=== PATIENT | male | born 1955 | race Caucasian/White ===

== ENCOUNTER 2017-03-11 05:23 | Inpatient (IN) ==
[2017-03-11 05:49] VITALS: BMI 28.0
[2017-03-11] MEDS ORDERED: METOCLOPRAMIDE 10mg/2ml INJECTION IVP ONE (06:00)
[2017-03-11] MEDS ORDERED: CLINDAMYCIN PB 900 MG/50 ML BAG IV ONE (06:00)
[2017-03-11] MEDS ORDERED: MELOXICAM 15 MG TABLET PO ONE (06:00)
[2017-03-11] MEDS ORDERED: FAMOTIDINE PB 20 MG/50 ML BAG IV ONE (06:00)
[2017-03-11] MEDS ORDERED: LIDOCAINE 1% (10mg/ml) 2mL INJ PF SDV ID ONE (06:00)
[2017-03-11] MEDS ORDERED: NOZIN NASAL SWAB NAS ONE ×2 (06:00→11:02)
[2017-03-11] MEDS ORDERED: ONDANSETRON 4 MG/2 ML INJECTION IVP ONE (06:00)
[2017-03-11] MEDS ORDERED: ACETAMINOPHEN 500 MG TABLET PO ONE (06:00)
[2017-03-11] MEDS ORDERED: TRANEXAMIC ACID 1,000 MG in NS 100 ML IV ONE ×2 (06:00→07:00)
[2017-03-11] MEDS: LR 1,000 ML IV SCH ×3 (06:17→09:48)
[2017-03-11] MEDS ORDERED: VANCOMYCIN 1,000 MG INJECTION ONE (06:41)
[2017-03-11] MEDS ORDERED: PROPOFOL 500 MG/50 ML VIAL IV ONE ×2 (07:02→08:34)
--- NOTE | 2017-03-11 07:13 | Anesthesia Preoperative Report ---
Anesthesia Preoperative Record - Date and Time Date: 03/11/17 Preoperative Diagnosis: Lt TKA M17.12 Proposed Procedure: left TKA NPO Since Date: 03/10/17 NPO Since Time: 22:00 Allergies/Adverse Reactions: Allergies Allergy/AdvReac Type Severity Reaction Status Date / Time amoxicillin [From Augmentin] AdvReac Severe Diarrhea Verified 03/11/17 05:56 clavulanic acid AdvReac Severe Diarrhea Verified 03/11/17 05:56 [From Augmentin] - Vital Signs Vital Signs: Temperature 97.7 F 03/11/17 05:47 Pulse Rate 71 03/11/17 06:16 Respiratory Rate 16 03/11/17 05:47 Blood Pressure 149/72 H 03/11/17 05:47 Pulse Oximetry 97 03/11/17 05:47 Height and Weight: Height 1.8 m Weight 91.3 kg Body Mass Index 28.0 - Medications Inpatient Medications: Current Medications Epinephrine HCl 0.25 mg/Bupivacaine HCl 30 ml/Morphine Sulfate 15 mg/Ketorolac Tromethamine 60 mg/Sodium Chloride 65.25 mls @ 0 mls/hr OPSITE INTRAOP ONE; Per Protocol PRN Reason: Protocol Stop: 03/11/17 08:01 Lactated Ringer's (Lactated Ringers) 1,000 mls @ 50 mls/hr IV .Q20H NIC Last Admin: 03/11/17 06:17 Dose: 50 mls/hr Sodium Chloride (Iv Flush) 10 - 80 ml IV PRN PRN PRN Reason: Flushing Home Medications: Home Medications Medication Instructions Recorded Confirmed Type Glucosa Callahan 2Kcl/Chondroitin Callahan 1 each PO DAILY 02/08/17 03/11/17 History [Glucosamine Chondroitin Caplet] Ibuprofen [Advil] 800 mg PO DAILY PRN 02/08/17 03/11/17 History Pravachol (pravastatin) 40 mg 40 mg PO HS tab 02/08/17 03/11/17 History tablet ascorbic acid (vitamin C) 1,000 mg 1 g PO DAILY tab 02/08/17 03/11/17 History tablet multivitamin capsule 1 cap PO QAM 02/08/17 03/11/17 History Cholecalciferol (Vitamin D3) 1 cap PO DAILY 02/09/17 03/11/17 History [Vitamin D3] Is Patient on Beta Marge?: No - Medical History Respiratory: DENIES: Sleep Apnea Cardiovascular: Reports: High Cholesterol Neuro/Musculoskeletal: Reports: Back Problems (per h&p/patient denies history) Renal/Endocrine: Reports: Other (hyperglycemia per h&p) Other History: Comment Only: Anesthesia Reactions (sometimes nauseated on ride home after hernia surgery) - Surgical History HEENT Surgeries: Reports: Eye Surgery ([place] cataract ext with IOL implants), Oral Surgery (wisdom teeth) GI Surgery/Treatments: Reports: Hernia Repair (x5), Colonoscopy Musculoskeletal Surgery/Tx: Reports: Knee Arthroscopy ( left knee) Anesthesia Reactions: None Hx Family Anesthesia Reaction: No History of Motion Sickness: No - Social History Smoking Status: Never smoker Hx Chewing Tobacco Use: No Second Hand Exposure: No Substance Use Type: does not use Alcohol Intake Frequency: does not drink - Pertinent Findings EKG: Sinus Rhythm - Physical Exam Respiratory Exam: Present: lungs clear, bilateral breath sounds equal Cardiovascular Exam: Present: regular rate and rhythm, no murmur - Airway Assessment Mallampati Score: III TMD: 3 Fingerbreadths Neck Extension: good Teeth: chipped teeth/crowns Overall Assessment: may be difficult intubation - ASA ASA Score: 2 - Plan Regional/Trunk Block: Spinal Peripheral Nerve Block: Saphenous-Left - Discussion Discussion: Discussed risks/options/alternatives of anesthesia and questions answered. Patient consents. Nursing pain assessment noted. Present for Discussion: family member Attestation Statement: Prior to the delivery of any anesthetic medication, I examined the patient, developed the plan, obtained the patient's consent and discussed the risk and benefits of the procedure with the patient/guardian. - Additional Information Seen by Anesthesia: Yes
[2017-03-11] MEDS ORDERED: SEVOFLURANE 250ml LIQUID IH ONE (07:37)
[2017-03-11] MEDS ORDERED: MIDAZOLAM 2mg/2ml INJECTION ONE (07:39)
[2017-03-11] MEDS ORDERED: EPINEPHrine PF 0.25 MG, BUPIVACAINE 0.25% PF 30 ML, MORPHINE SULFATE 15 MG, KETOROLAC I... OPSITE ONE (08:00)
[2017-03-11] MEDS ORDERED: SALINE FLUSH 10ml SYRINGE ONE (08:15)
[2017-03-11] MEDS ORDERED: PHENYLEPHRINE INJ 10 MG/ML VIAL IV ONE (08:15)
[2017-03-11] MEDS ORDERED: VANCOMYCIN 1,000 MG INJECTION IAR ONE (08:28)
--- NOTE | 2017-03-11 09:08 | Operative Note ---
- Procedure Preoperative Diagnosis: Left knee primary degenerative joint disease Postoperative Diagnosis: Same as preoperative diagnosis. Surgeon: Alvarez Rodriguez MD Academic Affairs Specialist: Arnol Mercado Complications: None. Anesthesia: Spinal. Estimated Blood Loss: See Anesthesia Record. Fluids: Please see Anesthesia Record. Desciption of Procedure: Mr. Castillo and his left knee were identified and marked in the preoperative holding area. He was brought back to the operating suite after a saphenous nerve block was placed in the preoperative holding area. Spinal anesthetic was administered and he was placed supine on the operating table. The left lower extremity was prepped and draped in my normal sterile fashion. Timeout was performed. The Fullbridge robot was used during the surgery. He had a varus deformity which was correctable and slight flexion contracture. A standard anterior midline incision followed by medial parapatellar arthrotomy was performed. Anterior fat pad and meniscus were removed. The patella was resurfaced to a size 35. A complete loss of cartilage and medial femoral condyle. Tibial and femoral arrays were placed both within the original incision. Checkpoints were then placed both in the femur and the tibia. The bone was then registered with the Fullbridge robot. Osteophytes were removed and gaps were captured both 90 and 0 with correction. The Marvin suffers used to manipulate components to obtain 19 mm gaps throughout. The Fullbridge robotic arm was then used to assist with the bone cuts. Posterior osteophytes and remaining meniscus were removed. Trial components were placed. We used a 6 femur and a 5 tibia with a 9 mm spacer. He tracked well and was well balanced throughout range of motion. The tibia was stamped the proper rotation. All trial components fit very well so we proceeded with press-fit components. Components were fit into place including a 9 mm spacer. The knee was ranged one more time to ensure good stability, balance and patellar tracking. 1 g of vancomycin powder was then placed into the knee joint. The capsulotomy was then closed with #1 Vicryl. I then left my itinerant teacher assistant to close the subcutaneous tissue with 2-0 Vicryl. Running 4-0 Monocryl will be used in the subcuticular layer. Dermabond will be used on the skin followed by sterile dressing. After drapes are removed patient will be taken to recovery room under the care of anesthesia.
[2017-03-11] MEDS ORDERED: ROPIVACAINE 0.5% (5mg/ml) 30ml INJ ONE (09:21)
--- NOTE | 2017-03-11 09:44 | Anesthesia Procedure Note ---
Peripheral Nerve Blockade - Procedure Physician: Nguyễn Rodriguez MD Date: 03/11/17 Surgical Procedure: left TKA Discussion: Discussed risks/options/alternatives of anesthesia and questions answered. Patient consents. Nursing pain assessment noted. Block Start: 09:39 Block Stop: 09:40 Blocked Employed: Adductor Canal Indication: Post-Operative Pain Approach: Left Side Confirmed Position: Supine Patient: Consent, Risks/Benefits Discussed, Informed, Post Block Act. Discussed IV Sedation: No Initial Vital Signs: Temperature 97.7 F 03/11/17 05:47 Temperature Source Oral 03/11/17 05:47 Pulse Rate 65 03/11/17 05:47 Respiratory Rate 16 03/11/17 05:47 Blood Pressure 149/72 H 03/11/17 05:47 Blood Pressure Mean 97 03/11/17 05:47 Blood Pressure Position Sitting 03/11/17 05:47 Pulse Oximetry 97 03/11/17 05:47 Oxygen Delivery Method 03/11/17 05:47 Post Vital Signs: Temperature 97.7 F 03/11/17 05:47 Pulse Rate 71 03/11/17 06:16 Respiratory Rate 16 03/11/17 05:47 Blood Pressure 149/72 H 03/11/17 05:47 Pulse Oximetry 97 03/11/17 05:47 Initial Pain Pain Score: 0 Post Block Pain Score: 0 Prep: Chlorhexadine/ETOH Ultrasound Used?: Yes - Injectate Ropivacaine (%): 0.5 Ropivacaine (mL): 20 Was Epi 1:200,000 Used?: No Injection: Injection made incrementally with constant monitoring and aspiration every ml
--- NOTE | 2017-03-11 09:55 | Anesthesia Postoperative Note ---
- Date and Time Date: 03/11/17 Time: 09:54 - Status Patient Participated in Evaluation: Patient Participated in Person Vital Signs: Temperature 97.2 F 03/11/17 09:31 Pulse Rate 67 03/11/17 09:31 Respiratory Rate 18 03/11/17 09:31 Blood Pressure 90/55 03/11/17 09:31 Pulse Oximetry 98 03/11/17 09:31 Respiratory Function: Airway Patent Cardiovascular Function: Regular Pulse EKG: Sinus Rhythm Mental Status: Alert and Oriented Pain Intensity: 0 Hydration: Taking PO Fluids Complications During Recover: None Apparent - Follow-Up Instructions Instructions: Per Surgeon
--- NOTE | 2017-03-11 10:07 | XRay Report ---
Indication: postoperative image PROCEDURE: XR knee LT 2V: Encounter: Initial Comparison: February 08, 2017 Findings: Postoperative changes of left total knee replacement are seen. There is expected postoperative subcutaneous gas. No evidence of hardware failure or acute fracture. No retained radiopaque surgical instruments or sponges. Overlying material causing artifact. Impression: New left total knee prosthesis without evidence of immediate complication. .
[2017-03-11] MEDS ORDERED: ONDANSETRON 4 MG/2 ML INJECTION IVP PRN (11:02)
[2017-03-11] MEDS ORDERED: NAPROXEN 220 MG TABLET PO PRN (11:02)
[2017-03-11] MEDS ORDERED: DiphenhydrAMINE 25 MG CAPSULE PO PRN (11:02)
[2017-03-11] MEDS ORDERED: DiphenhydrAMINE 50 MG/ML INJECTION IVP PRN (11:02)
[2017-03-11] MEDS ORDERED: LORazepam 1 MG TABLET PO PRN (11:02)
[2017-03-11] MEDS: ACETAMINOPHEN 325 MG TABLET PO SCH ×4 (12:42→21:10)
[2017-03-11] MEDS: POLYETHYL GLYCOL 3350 17gm PACKET PO SCH (12:43)
[2017-03-11] MEDS: NS 1,000 ML IV SCH (12:43)
[2017-03-11] MEDS: DOCUSATE SODIUM 100 MG CAPSULE PO SCH ×2 (12:43→21:13)
[2017-03-11] MEDS: NOZIN NASAL SWAB NAS SCH ×2 (14:26→21:16)
[2017-03-11] MEDS: CLINDAMYCIN PB 600 MG/50 ML BAG IV SCH ×2 (14:26→19:23)
[2017-03-11] MEDS ORDERED: SALINE FLUSH 10ml SYRINGE IV PRN (15:10)
[2017-03-11] MEDS: DEXAMETHASONE 4 MG/ML INJECTION IVP SCH (15:27)
[2017-03-11] MEDS ORDERED: PRAVASTATIN 40 MG TABLET PO SCH (21:00)
[2017-03-11] MEDS ORDERED: SENNOSIDES 8.6 MG TABLET PO SCH (21:00)
[2017-03-11] MEDS: ASPIRIN *EC* 81 MG TABLET PO SCH (21:13)
[2017-03-12] MEDS: DEXAMETHASONE 4 MG/ML INJECTION IVP SCH (02:05)
[2017-03-12] MEDS: CLINDAMYCIN PB 600 MG/50 ML BAG IV SCH (02:06)
[2017-03-12] MEDS: NS 1,000 ML IV SCH (02:49)
[2017-03-12] MEDS ORDERED: SENNOSIDES 8.6 MG TABLET PO PRN (07:09)
[2017-03-12] MEDS: POLYETHYL GLYCOL 3350 17gm PACKET PO SCH (09:12)
[2017-03-12] MEDS: NOZIN NASAL SWAB NAS SCH ×3 (09:12→15:33)
[2017-03-12] MEDS: ACETAMINOPHEN 325 MG TABLET PO SCH ×2 (09:13→12:46)
[2017-03-12] MEDS: DOCUSATE SODIUM 100 MG CAPSULE PO SCH (09:13)
[2017-03-12] MEDS: ASPIRIN *EC* 81 MG TABLET PO SCH (09:13)
[2017-03-12] MEDS: Oxycodone *IR* 5 MG TABLET PO PRN ×2 (09:14→12:46)
--- NOTE | 2017-03-12 09:14 | Orthopedic Progress Note ---
Date: Subjective/Severity of Illness: Mr Castillo is doing well. Pain is between 2-3. No CP or SOA. He has been up with good tolerance. Expects discharge later today. Orthopedic Objective PO Vital signs: Temperature 97.3 F 03/12/17 03:00 Pulse Rate 69 03/12/17 03:00 Respiratory Rate 16 03/12/17 04:00 Blood Pressure 132/81 03/12/17 03:00 Pulse Oximetry 93 03/12/17 04:00 Height and Weight: Height 5 ft 11 in Weight 201 lb 4.513 oz Body Mass Index 28.0 - Constitutional General Appearance: Present: alert, cooperative, no acute distress - Respiratory Exam Present: non-labored - Extremities Exam Extremities: Present: pulses intact. Absent: calf tenderness - Surgical Site Incision: Mepilex dressing intact, no drainage - Integumentary Exam Present: pink, warm, dry - Neurological Exam Present: no deficits - Psychiatric Exam Present: alert, normal affect - Labs Result Diagrams: 03/12/17 04:11 03/12/17 04:11 Abnormal lab results 03/12/17 Range/Units 04:11 BUN 23.0 H (9-20) MG/DL Glucose 132 H (75-110) MG/DL H & H 03/12/17 Range/Units 04:11 Hgb 14.1 (13.5-17.5) GM/DL Hct 42.9 (41-53) % Orthopedic Assessment and Plan (1) Primary osteoarthritis of left knee Status: Acute Assessment and Plan: Doing very well. No complaints. Current anti-coagulation protocol for VTE prophylaxis. SCD's. PT/OT services to improve independent function. Discharge Planning per Case Management. - Anticoagulation Therapy Anticoagulation: ASA 81 mg PO BID x6 weeks Hospital Course Summary Disclaimer: The visit summary below is not to be considered part of the above Progress Note.
[2017-03-12 09:36] VITALS: TEMP 97.4; O2SAT 94
[2017-03-12 11:31] VITALS: BP 128/74; PULSE 68; RESP 16
--- NOTE | 2017-03-12 14:31 | Discharge Summary ---
Orthopedic Discharge Info Date of admission: 03/11/17 05:23 Primary care physician: MINDY MENA Attending Physician: Nguyễn Rodriguez MD Consults: 03/11/17 05:36 Consult to Anesthesiology [CONS] Routine Reason For Exam: Preoperative Assessment 03/11/17 11:02 Case Management Consult [CONS] Routine Reason For Exam: Discharge Planning DME-Walker [CONS] Routine Height: 5 ft 11 in Weight: 201 lb 4.513 oz Total Joint Outpatient Therapy [CONS] Routine Comment: Remove dressing in 2 weeks 03/12/17 06:06 Case Management Consult [CONS] Routine Reason For Exam: noc ox - Discharge Diagnosis (1) Primary osteoarthritis of left knee Status: Acute - Laboratory Result Diagrams: 03/12/17 04:11 03/12/17 04:11 Laboratory: Abnormal lab results 03/12/17 Range/Units 04:11 BUN 23.0 H (9-20) MG/DL Glucose 132 H (75-110) MG/DL H & H 03/12/17 Range/Units 04:11 Hgb 14.1 (13.5-17.5) GM/DL Hct 42.9 (41-53) % Orthopedic Discharge HPI - HPI Comments This patient was admitted for elective surgical tx of end stage degenerative joint disease that failed to respond to conservative treatment. Further details of this is found in the admission H&P. Orthopedic Hospital Course Hospital course: 03/12/17 14:30 After appropriate preoperative clearance and signing of operative consent, the patient was given IV antibiotics, according to orthopedic protocol. The patient was taken to the operating room and underwent elective joint arthroplasty. Following surgery, antibiotics were discontinued less than 24 hours according to joint protocol. Appropriate anticoagulants were initiated and SCDs added for DVT prevention. The dressing was clean, dry, and intact. Pain control was obtained via multimodal approach. Bowel motivation addressed with scheduled and PRN medications. Early mobilization was initiated through PT services. Discharge arrangements made by a collaborative effort between the patient and Case Management. Follow-up is scheduled in 2-3 weeks. Discharge instructions given by orthopedic providers and nursing staff at discharge. Discharge condition was good. Ongoing care required?: No Discharge Plan - Med Rec/Dispo Referrals/Follow Up: Nguyễn Rodriguez MD [Physician] - 03/31/17 10:30 am [facility] Instructions: [facility] Postop Instructions Additional Instructions: NADIYA HARDEN ON 03/15/2017 AT 1:15PM FOR PHYSICAL THERAPY CHARLENE. PHONE [phone] Prescriptions: New Aspirin *EC* [Ecotrin] 81 mg PO BID #90 tab Docusate Sodium [Colace] 100 mg PO BID cap Oxycodone *IR* [Roxicodone *Ir*] 5 - 15 mg PO Q3H PRN #60 tab PRN Reason: Breakthrough Pain PEG 3350 17gm PACKET [Miralax] 17 gm PO DAILY packet Acetaminophen [Tylenol] 650 mg PO QID tab Milk of Magnesia [Mom] 30 ml PO DAILY udc Continue Glucosa Callahan 2Kcl/Chondroitin Callahan [Glucosamine Chondroitin Caplet] 1 each PO DAILY Ibuprofen [Advil] 800 mg PO DAILY PRN PRN Reason: Pain Cholecalciferol (Vitamin D3) [Vitamin D3] 1 cap PO DAILY multivitamin capsule 1 cap PO QAM Pravachol (pravastatin) 40 mg tablet 40 mg PO HS tab ascorbic acid (vitamin C) 1,000 mg tablet 1 g PO DAILY tab - Disposition 01 Discharged Home, Self-Care - Dismissal Complete Discharge Instructions are:: Complete
[2017-03-13] MEDS ORDERED: BISACODYL 10 MG SUPPOSITORY RECTALLY SCH (20:00)
== END 2017-03-12 16:15 | disposition home or self-care (01) | DRG 470 ==
LOC: SRG 05:23
PROVIDERS: ADMIT Orthopaedic Surgery; ATTEND Orthopaedic Surgery